=== PATIENT | female | born 1955 | race Caucasian/White ===

== ENCOUNTER → 2025-01-01 | Outpatient (CLI) | payer OTHER, SELFPAY ==
[2025-01-01 12:37] LABS: Absolute Lymphocyte Count 1.78 X10^3/uL (0.83-4.51); Absolute Neutrophil Count 2.7 X10^3/uL (2.0-7.7); Basophil# 0.04 X10^3/uL; Basophil% 0.8 % (0-1); Eosinophil# 0.06 X10^3/uL; Eosinophils% 1.2 % (0-5); Hematocrit 42.2 % (37-47); Hemoglobin 13.8 g/dL (12.0-15.0); Lymphocyte # 1.78 X10^3/ul (0.83-4.51); Mean Corp Hgb Conc 32.7 g/dL (32-36); Mean Corpuscular Hgb 29.4 pg (27.0-32.0); Mean Corpuscular Volume 89.8 fL (81-99); Mean Platelet Vol. 10.9 fl (6.2-12.0); Monocyte# 0.52 X10^3/uL; Monocyte% 10.2 % (0-10); NRBC Flagged by Analyzer 0 % (0-5); Neutrophil # 2.67 X10^3/uL (2.7-7.7); Neutrophil % 52.6 % (47-70); Platelet Count 275 K/mm3 (150-450); RBC Distribution Width CV 12.9 % (11.6-14.6); RBC Distribution Width SD 42.4 fl (35.1-43.9); White Blood Count 5.1 K/mm3 (4.4-11.0)
[2025-01-01 13:32] LABS: ALB/GLOB Ratio 1.6 RATIO (0.9-2.4); AST(SGOT) 28 U/L (<=31); Alanine Aminotransfer ALT/SGPT 19 U/L (<=34); Albumin, Serum 4.4 g/dL (3.4-4.8); Alkaline Phosphatase 92 U/L (35-104); Anion Gap 12 (5-15); BUN 10 mg/dL (4-19); BUN/Creat Ratio 15.1 RATIO (10-20); Calcium,Total 9.6 mg/dL (7.6-11.0); Carbon Dioxide 23.6 mmol/L (21.0-32.0); Chloride 105 mmol/L (98-108); Cholesterol 154 mg/dL (<=200); Creatinine, Serum 0.69 mg/dL (0.70-1.20); EST Glomerular Filtration Rate 94 (>60); Globulin 2.9 g/dL (2.2-4.2); Glucose 103 mg/dL (70-99); High Density Lipoprotein 64 mg/dL; Low Density Lipoprotein Calc. 71 mg/dL; Potassium 4.3 mmol/L (3.3-5.1); Protein, Total 7.3 g/dL (5.9-8.4); Sodium Level 140 mmol/L (133-145); Total Bilirubin 0.47 mg/dL (0.00-1.30); Triglycerides 95 mg/dL; Very Low Density Lipoprotein 19 mg/dL (5-40)
[2025-01-01 13:47] LABS: Vitamin B12 478 pg/mL (180-914); Vitamin D,25 Hydroxy 39.8 ng/mL (30-100)
== END | disposition home or self-care (01) ==
LOC: BFHLAB 10:39
PROVIDERS: PCP Nurse Practitioner Family; Visit Provider Nurse Practitioner Family
DX: I10 Essential (primary) hypertension (principal); E53.9 Vitamin B deficiency, unspecified; E55.9 Vitamin D deficiency, unspecified; E78.5 Hyperlipidemia, unspecified; L65.9 Nonscarring hair loss, unspecified
CPT/HCPCS: 36415; 80053; 80061; 82306; 82607; 84443; 85025